=== PATIENT | female | born 1940 | race African-American/Black ===

== ENCOUNTER 2022-02-13 14:07 | Emergency (ER) | payer OTHER ==
[~2022-02-13] VITALS: Ht 152.4 cm; Wt 124.0 kg
[2022-02-13] MEDS ORDERED: aldactone (14:11)
[2022-02-13] MEDS ORDERED: lipitor (14:11)
[2022-02-13] MEDS ORDERED: metformin (14:11)
[2022-02-13] MEDS ORDERED: TRANEXAMIC ACID 1,000 MG/10 ML TP ONE (14:30)
[2022-02-13 14:57] LABS: BASOPHILS % 0.5 % (0.0-2.0); EOSINOPHILS % 1.5 % (0.0-5.0); HEMATOCRIT. 32.2 % (36.0-48.0); HEMOGLOBIN. 10.6 g/dL (12.0-16.0); LYMPHOCYTES % 23.1 % (20.0-50.0); MEAN CORPUSCULAR HEMOGLOBIN 31.7 pg (28.0-32.0); MEAN CORPUSCULAR VOLUME 95.8 fL (81.0-99.0); MEAN PLATELET VOLUME 8.6 fl (7.4-10.4); MONOCYTES % 5.2 % (2.0-8.0); NEUTROPHILS % 69.7 % (40.0-76.0); PLATELET 210 x1000/uL (130-400); RED BLOOD CELL COUNT 3.36 mill/uL (4.2-5.4); RED CELL DISTRIBUTION WIDTH 15.2 % (11.6-14.6)
[2022-02-13 15:21] VITALS: BP 130/60
== END 2022-02-13 18:28 | disposition home or self-care (01) ==
LOC: ER 14:07
DX: R04.0 Epistaxis (principal); N28.9 Disorder of kidney and ureter, unspecified; E11.9 Type 2 diabetes mellitus without complications; E78.00 Pure hypercholesterolemia, unspecified; I10 Essential (primary) hypertension
CPT/HCPCS: 36415; 80048; 85025; 99283